=== PATIENT | male | born 1995 | race Caucasian/White ===

== ENCOUNTER 2017-07-30 14:13 | Emergency (ER) | payer MEDICAID ==
[~2017-07-30] VITALS: Ht 172.7 cm; Wt 81.6 kg
[2017-07-30 14:13] VITALS: BP 133/73
== END 2017-07-30 15:15 | disposition home or self-care (01) ==
LOC: ER 14:16
DX: Z76.0 Encounter for issue of repeat prescription (principal); F41.9 Anxiety disorder, unspecified
CPT/HCPCS: 99283; A4606; Z7610

== ENCOUNTER 2018-01-11 18:34 | Emergency (ER) | payer MEDICAID, OTHER ==
[~2018-01-11] VITALS: Ht 172.7 cm; Wt 79.4 kg
[2018-01-11 18:38] VITALS: BP 127/73
== END 2018-01-11 19:03 | disposition home or self-care (01) ==
LOC: ER 18:37
DX: Z76.0 Encounter for issue of repeat prescription (principal); F41.9 Anxiety disorder, unspecified
CPT/HCPCS: A4606; Z7610